=== PATIENT | male | born 1950 | race Caucasian/White ===

== ENCOUNTER → 2016-10-21 | Outpatient (CLI) | payer MEDICARE ==
--- NOTE | 2016-10-21 16:26 | PCVCIMAG ---
APPROVED REPORT Study performed: 10/21/2016 14:38:09 EXAM: Comprehensive 2D, Doppler, and color-flow Echocardiogram Patient Location: Echo lab Other Information Study Quality: Adequate Indications Diabetes Dyspnea Hypertension/HDD 2D Dimensions IVSd: 10.05 (7-11mm)LVOT Diam: 19.85 (18-24mm) LVDd: 56.42 mm PWd: 7.24 (7-11mm)Ascending Ao: 33.37 (22-36mm) LVDs: 28.33 (25-40mm) Left Atrium: 29.91 (27-40mm) Aortic Root: 25.90 mm LV Single Plane 4CH: 61.71 % LV Single Plane 2CH: 67.60 %Parker's LVEF: 64.65 % Biplane EF: 65.2 % Volumes Left Atrial Volume (Systole) Single Plane 4CH: 60.33 mLSingle Plane 2CH: 48.86 mL LA ESV Index: 28.00 mL/m2 Aortic Valve AoV Peak Ganesh.: 2.63 m/s AO Peak Gr.: 27.00 mmHgLVOT Max P.12 mmHg AO Mean Gr.: 16.42 mmHgLVOT Mean P.27 mmHg AO V2 Mean: 1.95 m/sLVOT Max V: 1.24 m/s AO V2 VTI: 60.04 cmLVOT Mean V: 0.85 m/s BRAULIO (VTI): 1.47 [id number] V1 VTI: 28.56 cm BRAULIO Vmax: 1.46 cm2 AI Vmax: 3.67 m/sSV (LVOT): 88.30 mL AI Owen: 2.04 m/s2 AI PHT: 536.08 ms Mitral Valve E/A Ratio: 0.9 MV Decel. Time: 213.03 ms MV E Max Ganesh.: 0.90 m/s MV A Ganesh.: 1.00 m/s IVRT: 110.73 ms Pulmonary Valve PV Peak Ganesh.: 1.11 m/sPV Peak Gr.: 4.94 mmHg Pulmonary Vein P Vein S: 0.61 m/sP Vein A: 0.30 m/s P Vein D: 0.51 m/sP Vein A Dur.: 117.6 msec P Vein S/D Ratio: 1.20 Tricuspid Valve TR Peak Ganesh.: 2.61 m/s TR Peak Gr.: 27.20 mmHg TV Vmax: 0.68 m/s Left Ventricle The left ventricle is normal size. There is normal LV segmental wall motion. There is normal left ventricular wall thickness. Left ventricular systolic function is normal. The left ventricular ejection fraction is within the normal range. LVEF is 60-65%. The left ventricular diastolic function is normal. Right Ventricle The right ventricle is normal size. The right ventricular systolic function is normal. Atria The left atrium size is normal. The right atrium size is normal. Aortic Valve Aortic valve is bicuspid. Aortic valve leaflets are mildly thickened with mild decreased excursion Mild to moderate aortic regurgitation. There is mild valvular aortic stenosis. Calculated aortic valve area is 1.5 cm2 with maximum pressure gradient of 28 mmHg and mean pressure gradient of 16 mmHg. Mitral Valve The mitral valve is normal in structure. There is no mitral valve regurgitation noted. No evidence of mitral valve stenosis. Tricuspid Valve The tricuspid valve is normal in structure. Mild tricuspid regurgitation with a PA pressure of 34 mmHg. Pulmonic Valve The pulmonary valve is normal in structure. There is no pulmonic valvular regurgitation. Great Vessels The aortic root is normal in size. IVC is normal in size and collapses with >50% inspiration Pericardium There is no pericardial effusion. <Conclusion> Left ventricular systolic function is normal. There is normal LV segmental wall motion. LVEF is 60-65%. Aortic valve is probably bicuspid. Aortic valve leaflets are mildly thickened with mild decreased excursion Mild to moderate aortic regurgitation. There is mild valvular aortic stenosis. Calculated aortic valve area is 1.5 cm2 with maximum pressure gradient of 28 mmHg and mean pressure gradient of 16 mmHg. The mitral valve is normal in structure. No mitral insufficiency Pulmonary artery pressure of 35mmHg There is no pericardial effusion.
--- NOTE | 2016-10-21 16:32 | PCVCIMAG ---
APPROVED REPORT Exam: Stress Echocardiogram Indication: Dyspnea Patient Location: Echo lab Stress Nurse: Tiffany Carl RN Status: routine HR: 70 bpm Rhythm: NSR Medical History Medical History: CAD non obstructive,bicuspid aortic valve Procedure The patient underwent an Exercise Stress Test using the Farrukh Protocol. Blood pressure, heart rate, and EKG were monitored. An Echocardiogram was performed by medical chief technician in four stages in quad fashion. At peak stress, four selected images were obtained and placed side by side with resting images for comparison. Testing Details Test: Exercise stress testing was performed using a Farrukh protocol. HR Resting HR: 70 bpmMax Heart Rate (APMHR): 155 bpm Max HR Achieved: 155 bpmTarget HR (85% APMHR): 131 bpm % of APMHR: 100 Recovery HR: 93 bpm HR response to stress: Normal HR response to stress BP Resting BP: 136/64 mmHg Max BP: 230/80 mmHg Recovery BP: 230/80 mmHg ECG Resting ECG: Sinus Rhythm Stress ECG: Sinus Rhythm, nonspecific ST-T abnormalities Maximum ST Deviation: 0.5 mm Arrhythmia: VPC's Recovery Arrhythmia: none Clinical Reason for Termination: Maximal effort Stress Symptoms: none Exercise duration: 9:00 min Exercise capacity: 10.1 METs Overall Exercise Capacity for Age: Normal Angina Score: None Stress ECG Conclusion ECG: Non-ischemic Clinical: Non-ischemic Gonzales Treadmill Score is 6.5 which is Low risk. Pre-Stress Echo The resting Echocardiogram showed normal left ventricular contractility with an estimated Ejection Fraction of about 55-60%. Normal wall motion in all segments on baseline images. Post-Stress Echo The stress Echocardiogram showed normal left ventricular contractility with an estimated Ejection Fraction of about 65-70%. Normal augmentation of wall motion in all segments on post stress images. Clinical No clinical evidence for ischemia. Borderline ischemic electrocardiographic changes, likely representing a false positive response Conclusion Clinical Response: Non-ischemic Exercise Capacity: Average Stress ECG Response: Equivocal Stress Echo Images: Non-ischemic The left ventricle is normal in size and wall thickness in both the rest and stress images. Hypertensive response to exercise was seen. Other Information Study Quality: Good <Conclusion> The left ventricle is normal in size and wall thickness in both the rest and stress images. Hypertensive response to exercise was seen.
== END | disposition home or self-care (01) ==
LOC: PCVCIMAG 14:28
PROVIDERS: ATTEND Internal Medicine
DX: I08.2 Rheumatic disorders of both aortic and tricuspid valves (principal); I25.10 Atherosclerotic heart disease of native coronary artery without angina pectoris; I10 Essential (primary) hypertension; E11.9 Type 2 diabetes mellitus without complications; Q23.1 Congenital insufficiency of aortic valve; E78.00 Pure hypercholesterolemia, unspecified; Z79.4 Long term (current) use of insulin
CPT/HCPCS: 93306; 93351

== ENCOUNTER → 2018-04-05 | Outpatient (CLI) | payer MEDICARE | END | disposition home or self-care (01) | LOC: PCVCCLINIC 15:04 | PROVIDERS: ATTEND Internal Medicine | DX: I25.10 Atherosclerotic heart disease of native coronary artery without angina pectoris (principal); E78.5 Hyperlipidemia, unspecified; Q23.1 Congenital insufficiency of aortic valve; I10 Essential (primary) hypertension; E11.9 Type 2 diabetes mellitus without complications; Z79.82 Long term (current) use of aspirin; Z79.84 Long term (current) use of oral hypoglycemic drugs | CPT/HCPCS: 93005; G0463 ==

== ENCOUNTER → 2018-04-12 | Outpatient (CLI) | payer MEDICARE ==
--- NOTE | 2018-04-12 13:23 | PCVCIMAG ---
APPROVED REPORT Study performed: 04/12/2018 09:24:31 EXAM: Comprehensive 2D, Doppler, and color-flow Echocardiogram Patient Location: Echo lab Status: routine BSA: 2.00 HR: 63 bpmBP: 140/58 mmHg Rhythm: NSR Other Information Study Quality: Good Risk Factors: Cardiac Risk Factors: Hyperlipidemia, HTN, DM Indications CAD Bicuspid Aortic Valve 2D Dimensions IVSd: 11.07 (7-11mm)LVOT Diam: 20.00 (18-24mm) LVDd: 48.10 mm PWd: 12.27 (7-11mm)Ascending Ao: 28.50 (22-36mm) LVDs: 30.36 (25-40mm) Left Atrium: 30.31 (27-40mm) Aortic Root: 29.43 mm LV Single Plane 4CH: 61.84 % LV Single Plane 2CH: 71.02 % Biplane EF: 67.3 % Volumes Left Atrial Volume (Systole) Single Plane 4CH: 57.14 mLSingle Plane 2CH: 47.21 mL LA ESV Index: 27.00 mL/m2 Aortic Valve AoV Peak Ganesh.: 2.83 m/s AO Peak Gr.: 36.04 mmHgLVOT Max P.42 mmHg AO Mean Gr.: 23.02 mmHgLVOT Mean P.68 mmHg AO V2 Mean: 2.07 m/sLVOT Max V: 1.05 m/s AO V2 VTI: 74.77 cm BRAULIO (VTI): 1.14 [id number] V1 VTI: 27.12 cm BRAULIO Vmax: 1.17 cm2 AI Vmax: 3.78 m/s AI [place]: 2.31 m/s2 AI PHT: 487.15 ms Mitral Valve E/A Ratio: 0.8 MV Decel. Time: 324.08 ms MV E Max Ganesh.: 0.90 m/s MV A Ganesh.: 1.16 m/s MV PHT: 93.98 ms IVRT: 69.20 ms TDI E/Lateral E': 12.86E/Medial E': 15.00 Medial E' Ganesh.: 0.06 m/s Lateral E' Ganesh.: 0.07 m/s Pulmonary Valve PV Peak Ganesh.: 1.03 m/sPV Peak Gr.: 4.27 mmHg MN End Vmax: 0.97 m/s Pulmonary Vein P Vein S: 0.44 m/sP Vein A: 0.28 m/s P Vein D: 0.46 m/sP Vein A Dur.: 110.7 msec P Vein S/D Ratio: 0.96 Tricuspid Valve TR Peak Ganesh.: 2.07 m/sRAP Estimate: 7.00 mmHg TR Peak Gr.: 17.12 mmHg PA Pressure: 24.00 mmHg Left Ventricle The left ventricle is normal size. There is normal LV segmental wall motion. Borderline concentric left ventricular hypertrophy. Left ventricular systolic function is normal. The left ventricular ejection fraction is within the normal range. LVEF is 65-70%. Grade I - abnormal relaxation pattern. Right Ventricle The right ventricle is normal size. The right ventricular systolic function is normal. Atria The left atrium size is normal. The right atrium size is normal. Aortic Valve Aortic valve is bicuspid, mildly calcified. Mild aortic regurgitation. The peak aortic valve gradient is 36 mmHg and the mean is 23 mmHg. The aortic valve area is 1.2 cm2. Moderate aortic stenosis. Mitral Valve The mitral valve is normal in structure. There is no mitral valve regurgitation noted. No evidence of mitral valve stenosis. Tricuspid Valve The tricuspid valve is normal in structure. There is no tricuspid valve regurgitation noted. Pulmonic Valve The pulmonary valve is normal in structure. Trace pulmonic regurgitation. Great Vessels The aortic root is normal in size. IVC is normal in size and collapses >50% with inspiration. Pericardium There is no pericardial effusion. <Conclusion> Left ventricular systolic function is normal. There is normal LV segmental wall motion. LVEF is 65-70%. Mild diastolic dysfunction Aortic valve is bicuspid, mildly calcified. The peak aortic valve gradient is 36 mmHg and the mean is 23 mmHg. The aortic valve area is 1.2 cm2. Moderate aortic stenosis. Mild aortic regurgitation. The mitral valve is normal in structure. No mitral valve regurgitation. There is no pericardial effusion.
== END | disposition home or self-care (01) ==
LOC: PCVCIMAG 09:40
PROVIDERS: ATTEND Internal Medicine
DX: I35.1 Nonrheumatic aortic (valve) insufficiency (principal); I35.0 Nonrheumatic aortic (valve) stenosis; I25.10 Atherosclerotic heart disease of native coronary artery without angina pectoris; I10 Essential (primary) hypertension; E78.5 Hyperlipidemia, unspecified; E11.9 Type 2 diabetes mellitus without complications
CPT/HCPCS: 93306

== ENCOUNTER → 2019-03-24 | Outpatient (CLI) | payer MEDICARE ==
--- NOTE | 2019-03-28 18:49 | PCVCIMAG ---
APPROVED REPORT Study performed: 03/24/2019 08:50:47 EXAM: Comprehensive 2D, Doppler, and color-flow Echocardiogram Patient Location: Echo lab Status: routine BSA: 1.96 HR: 62 bpmBP: 158/66 mmHg Rhythm: NSR Other Information Study Quality: Adequate Risk Factors: Cardiac Risk Factors: HTN, DM Indications Dyspnea CAD Bicuspid aortic valve 2D Dimensions IVSd: 13.54 (7-11mm)LVOT Diam: 21.77 (18-24mm) LVDd: 40.78 mm PWd: 13.19 (7-11mm)Ascending Ao: 36.63 (22-36mm) LVDs: 30.05 (25-40mm) Left Atrium: 36.59 (27-40mm) Aortic Root: 36.04 mm LV Single Plane 4CH: 56.83 % LV Single Plane 2CH: 66.37 % Biplane EF: 61.4 % Volumes Left Atrial Volume (Systole) Single Plane 4CH: 74.65 mLSingle Plane 2CH: 71.25 mL LA ESV Index: 37.00 mL/m2 Aortic Valve AoV Peak Ganesh.: 3.38 m/s AO Peak Gr.: 45.78 mmHgLVOT Max P.91 mmHg AO Mean Gr.: 20.99 mmHgLVOT Mean P.11 mmHg AO V2 Mean: 2.07 m/sLVOT Max V: 1.22 m/s AO V2 VTI: 77.92 cmLVOT Mean V: 0.83 m/s BRAULIO (VTI): 1.27 pm5AOKE V1 VTI: 26.56 cm BRAULIO Vmax: 1.34 cm2 AI Vmax: 4.04 m/sSV (LVOT): 98.79 mL AI [place]: 2.96 m/s2 AI PHT: 395.00 ms Mitral Valve E/A Ratio: 0.8 MV Decel. Time: 333.65 ms MV E Max Ganesh.: 0.88 m/s MV A Ganesh.: 1.14 m/s IVRT: 114.19 ms Pulmonary Valve PV Peak Ganesh.: 1.09 m/sPV Peak Gr.: 4.75 mmHg Pulmonary Vein P Vein S: 0.39 m/sP Vein A: 0.34 m/s P Vein D: 0.54 m/sP Vein A Dur.: 128.0 msec P Vein S/D Ratio: 0.72 Tricuspid Valve TR Peak Ganesh.: 2.62 m/s TR Peak Gr.: 27.40 mmHg Left Ventricle The left ventricle is normal size. There is normal LV segmental wall motion. Mild concentric left ventricular hypertrophy. Left ventricular systolic function is normal. The left ventricular ejection fraction is within the normal range. LVEF is 60-65%. Mild diastolic dysfunction is present (impaired relaxation pattern). Right Ventricle The right ventricle is normal size. The right ventricular systolic function is normal. Atria Left atrium is mildly dilated. The right atrium size is normal. Aortic Valve The aortic valve is moderately calcified, bicuspid. Moderate eccentric aortic regurgitation. There is mild to moderate valvular aortic stenosis. Calculated aortic valve area is 1.3 cm2 with maximum pressure gradient of 46 mmHg and mean pressure gradient of 21 mmHg. Mitral Valve Mild mitral annular calcification Trace mitral regurgitation. No evidence of mitral valve stenosis. Tricuspid Valve The tricuspid valve is normal in structure. Mild tricuspid regurgitation with PAP of 34 mmHg. Pulmonic Valve The pulmonary valve is normal in structure. Mild pulmonic regurgitation. Great Vessels The aortic root is normal in size. IVC is normal in size and collapses >50% with inspiration. Pericardium There is no pericardial effusion. There is no pleural effusion. <Conclusion> Left ventricular systolic function is normal. There is normal LV segmental wall motion. LVEF is 60-65%. Mild diastolic dysfunction Left atrium is mildly dilated. The aortic valve is moderately calcified, bicuspid. Moderate valvular aortic stenosis. Calculated aortic valve area is 1.3 cm2 with maximum pressure gradient of 46 mmHg and mean pressure gradient of 21 mmHg. Moderate eccentric aortic regurgitation. Mild mitral annular calcification. Trace mitral regurgitation. Mild tricuspid regurgitation with pulmonary artery pressure of 34 mmHg. There is no pericardial effusion. Similar to March 2018.
== END | disposition home or self-care (01) ==
LOC: PCVCIMAG 08:51
PROVIDERS: ATTEND Internal Medicine
DX: I08.8 Other rheumatic multiple valve diseases (principal); I25.10 Atherosclerotic heart disease of native coronary artery without angina pectoris; I10 Essential (primary) hypertension; R06.00 Dyspnea, unspecified
CPT/HCPCS: 93306